=== PATIENT | female | born 1960 | race Caucasian/White ===

== ENCOUNTER 2019-01-29 19:02 | Emergency (ER) | payer OTHER, SELFPAY ==
[2019-01-29 19:05] VITALS: BP 113/72; PULSE 87; RESP 18; TEMP 36.6; O2SAT 97
--- NOTE | 2019-01-29 19:33 | ED_ITS ---
HPI - Back Pain/Injury <CIERRA Berry - Last Filed: 01/29/19 21:23> General Chief Complaint: Back Pain/Injury Stated Complaint: searing back pain x3 days Time Seen by Provider: 01/29/19 19:07 Source: patient Mode of arrival: ambulatory Limitations: no limitations History of Present Illness HPI Narrative: 58-year-old female who does frequent martial arts, was sent from the walk-in clinic today complaining of right back pain that radiates to her armpit. She states this started gradually about 2 days ago it is a constant 8/10 aching sharp pain. Pain is worse when she raises her arms, worse when she touches the area, and worse when she makes and movements. She states she has recently been lifting a lot of boxes and has been participating in martial arts. She denies any recent trauma, fevers, chills, chest pain, shortness of breath, swelling in her ankles, syncope, numbness, tingling, nausea, vomiting, or diarrhea. She states she has taken Tylenol and gabapentin and these have relieved the pain. Related Data Home Medications Medication Instructions Recorded Confirmed acetaminophen 650 mg PO Q4H PRN 01/29/19 01/29/19 Previous Rx's Medication Instructions Recorded cyclobenzaprine 10 mg PO BEDTIME #4 tab 01/29/19 Allergies Allergy/AdvReac Type Severity Reaction Status Date / Time Sulfa (Sulfonamide Allergy Unknown Verified 01/29/19 19:11 Antibiotics) Review of Systems <CIERRA Berry - Last Filed: 01/29/19 21:23> Review of Systems REVIEW OF SYSTEMS: GENERAL: Denies fever or chills. HENT: No head trauma. EYES: No double vision or vision loss. CARDIOVASCULAR: No chest pain or syncope. RESPIRATORY: No shortness of breath or cough. GASTROINTESTINAL: No nausea, vomiting, diarrhea, or constipation. GENITOURINARY: No flank pain or dysuria. MUSCULOSKELETAL: Complains of right back pain, see HPI. INTEGUMENTARY: No rash, lesions, or pruritus. NEURO: No numbness, tingling. Complains of burning pain, see HPI. PSYCH: No behavior or mood changes. PFSH <CIERRA Berry - Last Filed: 01/29/19 21:23> Medical History Osteoarthritis (Acute) Social History Smoking Status: Former smoker Social History Smoking Status: Former smoker Exam <CIERRA Berry - Last Filed: 01/29/19 21:23> Initial Vital Signs Initial Vital Signs: Vital Signs Temperature 97.8 F 01/29/19 19:05 Pulse Rate 87 01/29/19 19:05 Respiratory Rate 18 01/29/19 19:05 Blood Pressure 113/72 01/29/19 19:05 Pulse Oximetry 97 01/29/19 19:05 PHYSICAL EXAMINATION: GENERAL: Well groomed, alert, and cooperative. Answers questions promptly and appropriately. Vital signs noted. HENT: Normocephalic, atraumatic. Oropharynx without erythema. Uvula midline. NECK: Lymphadenopathy EYES: Symmetrical, sclera white, no periorbital swelling. CARDIOVASCULAR: S1 and S2 sounds normal. Regular rate and rhythm, no murmurs, clicks, or bruits. No pedal edema. RESPIRATORY: Normal respiratory rate, trachea midline, airway patent. No stridor, nasal flaring or accessory muscle use. Lungs are clear in all abraham. MUSCULOSKELETAL: Normal gait and coordination. Equal tone and mass bilaterally. No spinal tenderness or deformities. Significant muscle spasm palpated along the right trapezius muscle bordering the shoulder blade. Significant muscle spasm palpated under patient's right armpit. Pain was reproduced with palpation of the muscle spasms. No bony tenderness on shoulder blade or ribs. Full range of motion of neck in arms, however pain is reproduced when patient raises her arms over her head. No rashes, erythema, or ecchymosis surrounding the area of pain. One 2 cm bruise noted on lower back which did not correlate with pain. Patient reported significant decrease in pain after administration of Toradol. EXTREMITIES: CMS intact. No pedal edema. SKIN: Warm, dry, soft, appropriate color for ethnicity. No lesions, rashes, or wounds. NEURO: Alert and Oriented X 3. No sensory deficits. PSYCH: Appropriate affect and mood. <Lauren Asencio DO - Last Filed: 01/30/19 00:44> Initial Vital Signs Initial Vital Signs: Vital Signs Temperature 97.8 F 01/29/19 19:05 Pulse Rate 87 01/29/19 19:05 Respiratory Rate 18 01/29/19 19:05 Blood Pressure 113/72 01/29/19 19:05 Pulse Oximetry 97 01/29/19 19:05 Course <Ayanna CIERRA Stoddard - Last Filed: 01/29/19 21:23> Orders Ordered: ED Orders 01/29/19 19:16 EKG-12 Lead Stat Discontinued Medications Cyclobenzaprine HCl (Flexeril 10 Mg Prepack) 1 bottle MISC SEEINSTR ONE Stop: 01/29/19 20:23 Last Admin: 01/29/19 20:38 Dose: 1 bottle Ketorolac Tromethamine (Toradol) 30 mg IM NOW ONE Stop: 01/29/19 19:30 Last Admin: 01/29/19 19:38 Dose: 30 mg Reevaluation(s) Reevaluation #1: Patient states she was feeling much better with administration of Toradol, pain is now a 2/10. During the injection, she stated the Toradol was burning, the nurse reported a slight vagal response which she recovered from very quickly with supine rest and p.o. fluids. She stated she would like to return home. Denies any dizziness, chest pain, or shortness of breath. Consultations Consultation #1: Patient staffed with Dr. Asencio. Vital Signs - 8 hr 01/29/19 19:05 01/29/19 20:02 Temperature 97.8 F Pulse Rate 87 59 L Respiratory Rate 18 14 Blood Pressure 113/72 Blood Pressure [Right Arm] 112/60 Pulse Oximetry 97 99 <Lauren Asencio DO - Last Filed: 01/30/19 00:44> Orders Ordered: ED Orders 01/29/19 19:16 EKG-12 Lead Stat Discontinued Medications Cyclobenzaprine HCl (Flexeril 10 Mg Prepack) 1 bottle MISC SEEINSTR ONE Stop: 01/29/19 20:23 Last Admin: 01/29/19 20:38 Dose: 1 bottle Ketorolac Tromethamine (Toradol) 30 mg IM NOW ONE Stop: 01/29/19 19:30 Last Admin: 01/29/19 19:38 Dose: 30 mg Vital Signs - 8 hr 01/29/19 19:05 01/29/19 20:02 Temperature 97.8 F Pulse Rate 87 59 L Respiratory Rate 18 14 Blood Pressure 113/72 Blood Pressure [Right Arm] 112/60 Pulse Oximetry 97 99 [facility] - Back Pain/Injury <SAIDA BerryP - Last Filed: 01/29/19 21:23> Medical Records Attestation: I reviewed the patient's medical records. Lab Data Attestation: I reviewed the patient's lab results. ECG Data Interpretation: Heart rate 59, UT interval 174, QTC 429. Normal sinus rhythm, no axis deviation, no ST elevation or ST depression. No abnormal T-wave inversion, no ectopy. Reviewed by Dr. Asencio. [facility] Narrative Medical decision making narrative: I suspect that patient's pain is musculoskeletal in nature, differential includes muscle spasm (duedue to exam, palpable pain, significant reduction in symptoms with administration of Toradol and palpable muscle spasm), and trapezius strain (participation martial arts, heavy lifting lately, reproducible pain with movement and palpation). Very low suspicion for pneumonia, infection, AAA, or cardiac origin due to reproducible pain, lack of other symptoms (chest pain, unilateral pain, shortness of breath, chest pressure, dizziness, vital sign changes,). Also explained to patient to watch to see if a rash develops as shingles also remains in my differential due to description of a burning pain and it being unilateral. <Lauren Asencio DO - Last Filed: 01/30/19 00:44> ECG Data Attestation: I personally reviewed and interpreted this ECG as follows: Prior ECG tracings: not available for review Interpretation: Sinus rhythm rate 59 low voltage no acute ST changes no T-wave inversions p.r. interval 174 Discharge Plan Departure Patient Disposition: Home Clinical Impression: Muscle spasm, Acute neck pain Discharge Date/Time: 01/29/19 20:42 Interventions: ED Discharge Assessment Last Done: 01/29/19 20:42 Instructions: DI for Neck Pain, DI for Back Spasm Activity Restrictions/Additional Instructions: Thank you for entrusting me with your care today. As discussed, I believe your pain is caused by muscle spasm. Your exam revealed that most of your pain is in your muscle, this is reassuring that this is not related to cardiac, bone, vascular, or other issues. Please perform gentle stretches several times a day. I prescribed a muscle relaxer, this medication can make you drowsy so please do not drive with this. Follow up with your primary care provider in the next few days a symptoms persist. Return to the emergency department if you develop chest pain, chest pressure, shortness of breath, uncontrollable vomiting, or syncope. Your prescription was sent to [facility] in a [place]. Prescriptions: New cyclobenzaprine 10 mg tablet 10 mg PO BEDTIME Qty: 4 RF: 0 No Action acetaminophen 325 mg Capsule 650 mg PO Q4H PRN (Reason: Pain (Scale Score 1-3)) RF: 0 <Lauren Asencio, - Last Filed: 01/30/19 00:44> Cosign ED Attending Andrewature Attestation: I was immediately available in the department for consultation. Documentation has been reviewed. I agree with assessment and plan.
[2019-01-29] MEDS: KETOROLAC 60 MG/2 ML VIAL 30 MG IM (19:38)
[2019-01-29 20:02] VITALS: BP 112/60; PULSE 59; RESP 14; O2SAT 99
[2019-01-29] MEDS: CYCLOBENZAPRINE 10 MG PREPACK 1 BOTTLE MISC (20:38)
== END 2019-01-29 20:42 | disposition home or self-care (01) ==
PROVIDERS: Emergency Provider Nurse Practitioner
DX: M62.838 Other muscle spasm (principal); M54.2 Cervicalgia
CPT/HCPCS: 93005; 96372; 99282; 99283; J1885